=== PATIENT | male | born 1975 | race Caucasian/White ===

== ENCOUNTER 2022-06-17 15:29 | Emergency (ER) | payer OTHER, SELFPAY ==
[2022-06-17 15:35] VITALS: BP 174/103; PULSE 79; RESP 18; TEMP 36.4; O2SAT 97; BMI 46.8
--- NOTE | 2022-06-17 16:15 | CRLHL7_ITS ---
For Patients: As a result of the Century Cures Act, medical imaging exams and procedure reports are released immediately into your electronic medical record. You may view this report before your referring provider. If you have questions, please contact your health care provider. INDICATION: Syncope. TECHNIQUE: CT head without contrast. COMPARISON: None. FINDINGS: CSF spaces: Within normal limits for age. Brain parenchyma and extra-axial spaces: The gustafson-white differentiation is normal. No sign of mass, hemorrhage, or midline shift. No extra-axial fluid collection. Skull base and calvarium: The visualized paranasal sinuses and mastoid air cells demonstrate no acute or significant findings. The visualized orbits are grossly unremarkable. No skull fractures. IMPRESSION: No acute intracranial process identified. Please note that all CT scans at this facility use dose modulation, iterative reconstruction, and/or weight-based dosing when appropriate to reduce radiation dose to as low as reasonably achievable. Dictated by Wil Sweeney MD @ 06/17/2022 4:49:38 PM (Electronically Signed)
[2022-06-17 16:58] LABS: Basophils Absolute Auto 0.07 K/uL (0.00-0.30); Basophils Percent Auto 0.9 % (0.0-3.0); Eosinophils Absolute Auto 0.14 K/uL (0.00-0.50); Eosinophils Percent Auto 1.9 % (0.0-7.0); Hemoglobin* 14.5 gm/dL (13.5-17.5); Immature Granulocytes Abs Auto 0.04 K/uL (0.00-0.30); Lymphocytes Absolute Auto 1.66 K/uL (0.90-2.90); Mean Corpuscular HGB Conc 33 gm/dL (32-36); Mean Corpuscular Hemoglobin 28 pg (26-34); Mean Corpuscular Volume 86 fL (80-100); Monocytes Percent Auto 5.8 % (0.0-11.0); Neutrophils Absolute Auto 5.19 K/uL (1.7-7.0); Neutrophils Percent Auto 68.9 % (42.0-72.0); Platelet Count* 326 K/uL (140-440); RDW Coefficient of Variation % 13.4 % (11.5-15.5); Red Blood Count 5.13 m/uL (4.30-5.90); White Blood Count* 7.54 K/uL (4.50-11.00)
[2022-06-17 17:00] LABS: Slide Review Reflex No
[2022-06-17 17:18] LABS: Chloride* 102 mmol/L (96-114)
[2022-06-17 17:19] LABS: Potassium* 3.5 mmol/L (3.6-5.1); Sodium* 138 mmol/L (135-149)
[2022-06-17 17:21] LABS: Est. Creatinine Clearance* 102.39; Estimated Glomerular Filt Rate 95 ml/min
[2022-06-17 17:22] LABS: Blood Urea Nitrogen* 14 mg/dL (5-24); Calcium* 8.5 mg/dL (8.4-10.6); Carbon Dioxide* 30 mmol/L (20-32); Glucose* 110 mg/dL (60-115)
[2022-06-17 17:38] LABS: Troponin I* < 0.01 ng/mL (0.01-0.04)
--- NOTE | 2022-06-17 17:59 | ED.GENADULT ---
HPI - General Adult General Date Seen: 06/17/22 Chief complaint: Dizziness/Vertigo Stated complaint: Dizziness, Syncope Time Seen by Provider: 06/17/22 16:04 Source: patient Mode of arrival: ambulatory Limitations: no limitations History of Present Illness HPI narrative: Patient is a 46-year-old male who had two or three episodes of syncope four days ago. These occurred while at work putting things away in the cooler. He has never had this before. Since that time he has felt okay. He has hypertension but had been compliant with his medication. He never checks his blood pressure outside the clinic. He is on two drugs for anxiety and depression but had not missed any days. With the 2nd episode he did feel his vision close in prior to passing out but he had no warning sign with the 1st episode. There was no incontinence, tongue biting, postictal period. He denies any head injury. Had no headache before or since. He has had no focal neurologic findings. He called the clinic to set up a follow-up appointment and the triage nurse asked him some questions and told him to come to the emergency department. He denies chest pain or shortness of breath. He is treated for hypertension, hyperlipidemia. He does not smoke. He is morbidly obese. Related Data Home Medications Medication Instructions Recorded Confirmed amlodipine 10 mg tablet mg 06/17/22 atorvastatin 20 mg tablet mg 06/17/22 bupropion HCl 100 mg tablet,12 hr mg PO 06/17/22 sustained-release cetirizine 10 mg tablet mg 06/17/22 fluoxetine 20 mg capsule mg 06/17/22 Previous Rx's Medication Instructions Recorded lisinopril 10 mg tablet 10 mg PO DAILY #30 tabs 06/17/22 Allergies Allergy/AdvReac Type Severity Reaction Status Date / Time latex Allergy Verified 06/17/22 15:42 Review of Systems Status of ROS: Reports: 10 or more systems reviewed and unremarkable except as noted in History and below Exam Narrative: Exam Narrative: Vitals noted. HEENT: Conjunctiva clear. Tympanic membranes are pearly white bilaterally. Posterior pharynx is clear without erythema or exudate. Neck is supple without adenopathy, thyromegaly, carotid bruit. Lungs: Clear to auscultation in all stephens. No wheezes, rales, rhonchi. Heart: Regular rate and rhythm without murmur. Abdomen: Obese, Soft and nontender. No guarding, rigidity, rebound. Bowel sounds are normal. No palpable masses. Extremities: No cyanosis or edema. Good distal pulses. Skin: No abnormalities noted of the exposed skin. Neurologic: Awake, alert, fully oriented. Neurologic exam is nonfocal. Const: Vital Signs, click to edit/add: Vital Signs - 24 hr 06/17/22 15:35 Temperature 97.6 F Pulse Rate [Right Pulse Oximeter] 79 Respiratory Rate 18 Blood Pressure [Ri ght Forearm] 174/103 H Pulse Oximetry 97 Oxygen Delivery Me thod Room Air Course Course Hospital Course: Patient was seen and examined. Labs and a CT and EKG are ordered. He is currently asymptomatic. Reevaluation(s) Reevaluation #1: Labs and CT and EKG have all returned normal. EKG shows normal sinus rhythm with rate of 75. No acute ST or T-wave changes noted. CT of the head without contrast does not show any acute findings. Vital Signs Vital signs: Initial Vital Signs Temperature 97.6 F 06/17/22 15:35 Temperature Source Temporal Artery Scan 06/17/22 15:35 Pulse Rate 79 06/17/22 15:35 Respiratory Rate 18 06/17/22 15:35 Blood Pressure 174/103 H 06/17/22 15:35 Blood Pressure Mean 126 06/17/22 15:35 Blood Pressure Position Sitting 06/17/22 15:35 Pulse Oximetry 97 06/17/22 15:35 Oxygen Delivery Method 06/17/22 15:35 Vital Signs Temperature 97.6 F 06/17/22 15:35 Pulse Rate 79 06/17/22 15:35 Respiratory Rate 18 06/17/22 15:35 Blood Pressure 174/103 H 06/17/22 15:35 Pulse Oximetry 97 06/17/22 15:35 Oxygen Delivery Method 06/17/22 15:35 Temperature 97.6 F 06/17/22 15:35 Pulse Rate 79 06/17/22 15:35 Respiratory Rate 18 06/17/22 15:35 Blood Pressure 174/103 H 06/17/22 15:35 Pulse Oximetry 97 06/17/22 15:35 Oxygen Delivery Method 06/17/22 15:35 Medical Decision Making Lab Data Labs: Lab Results 06/17/22 06/17/22 Range/Units 16:46 16:46 WBC 7.54 (4.50-11.00) K/uL RBC 5.13 (4.30-5.90) m/uL Hgb 14.5 (13.5-17.5) gm/dL Hct 44.0 (37.0-53.0) % MCV 86 (80-100) fL MCH 28 (26-34) pg MCHC 33 (32-36) gm/dL RDW Coeff of Jose Luis 13.4 (11.5-15.5) % Plt Count 326 (140-440) K/uL Neut % (Auto) 68.9 (42.0-72.0) % Lymph % (Auto) 22.0 (20-44) % [place] % (Auto) 5.8 (0.0-11.0) % Eos % (Auto) 1.9 (0.0-7.0) % Baso % (Auto) 0.9 (0.0-3.0) % Neut # (Auto) 5.19 (1.7-7.0) K/uL Lymph # (Auto) 1.66 (0.90-2.90) K/uL [place] # (Auto) 0.40 (0.00-0.90) K/UL Eos # (Auto) 0.14 (0.00-0.50) K/uL Baso # (Auto) 0.07 (0.00-0.30) K/uL Abs Immat Gran (auto) 0.04 (0.00-0.30) K/uL Sodium 138 (135-149) mmol/L Potassium 3.5 L (3.6-5.1) mmol/L Chloride 102 (96-114) mmol/L Carbon Dioxide 30 (20-32) mmol/L BUN 14 (5-24) mg/dL Creatinine 1.0 (0.5-1.5) mg/dL Estimated Creat Clear 102.39 Estimated GFR 95 ml/min Glucose 110 (60-115) mg/dL Calcium 8.5 (8.4-10.6) mg/dL Troponin I < 0.01 L (0.01-0.04) ng/mL Discharge Plan Discharge Clinical Impression: Syncope, Hypertension Patient Disposition: Home, Self-Care Condition: Stable Additional Instructions: Continue all current medications. Add lisinopril 10 mg daily. Keep your follow-up appointment with your PCP in 2-3 weeks. Return to the emergency department for recurrent syncopal spells. Prescriptions: New lisinopril 10 mg tablet 10 mg PO DAILY Qty: 30 0RF No Action atorvastatin 20 mg tablet Label Comments: TAKE 1 TABLET BY MOUTH EVERY DAY cetirizine 10 mg tablet Label Comments: TAKE 1 TABLET BY MOUTH EVERY DAY bupropion HCl 100 mg tablet sustained-release 12 hr PO Label Comments: TAKE 2 TABLETS BY MOUTH EVERY MORNING amlodipine 10 mg tablet Label Comments: TAKE 1 TABLET BY MOUTH EVERY DAY fluoxetine 20 mg capsule Label Comments: TAKE THREE CAPSULES IN AM DAILY Follow Up/Referrals: Provider,Not a Local [Primary Care Provider] - Stand Alone Forms: [employer] Info Instructions
== END 2022-06-17 18:24 | disposition home or self-care (01) ==
PROVIDERS: Emergency Provider Family Medicine
DX: R55 Syncope and collapse (principal); I10 Essential (primary) hypertension; E78.5 Hyperlipidemia, unspecified; Z79.899 Other long term (current) drug therapy; Z91.040 Latex allergy status; E66.01 Morbid (severe) obesity due to excess calories
CPT/HCPCS: 36415; 70450; 80048; 84484; 85025; 93005; 99283; 99284; 99285